=== PATIENT | female | born 1955 | race Caucasian/White ===

== ENCOUNTER 2021-04-07 14:11 | Outpatient (CLI) | payer MEDICARE ==
[2021-04-07 15:55] LABS: Hemoglobin 13.9 g/dL (12.0-15.5); Mean Corpuscular HGB CONC 32.1 g/dL (32.0-36.0); Mean Corpuscular Hemoglobin 28.4 pg (27.0-33.0); Mean Corpuscular Volume 88.5 fl (81.6-98.3); Platelet Count 283 10x3/uL (150-450); RBC Distribution Width 13.7 % (11.5-14.5); Red Blood Cell (RBC) Count 4.89 10x6/uL (3.90-5.03); White Blood Cell (WBC) Count 6.3 10x3/uL (3.5-10.5)
[2021-04-08 18:11] LABS: SARS-CoV-2 PCR by NAA Not Detected (NotDetected)
== END 2021-04-07 14:12 | disposition home or self-care (01) ==
LOC: CSHLAB 14:11
PROVIDERS: ATTEND Obstetrics & Gynecology
DX: Z01.812 Encounter for preprocedural laboratory examination (principal); Z20.822 Contact with and (suspected) exposure to COVID-19
CPT/HCPCS: 85027; 86850; 86900; 86901; U0003; U0005

== ENCOUNTER 2021-04-12 07:41 | Observation (INO) | payer MEDICARE ==
[2021-04-07 15:55] LABS: Hemoglobin 13.9 g/dL (12.0-15.5); Mean Corpuscular HGB CONC 32.1 g/dL (32.0-36.0); Mean Corpuscular Hemoglobin 28.4 pg (27.0-33.0); Mean Corpuscular Volume 88.5 fl (81.6-98.3); Platelet Count 283 10x3/uL (150-450); RBC Distribution Width 13.7 % (11.5-14.5); Red Blood Cell (RBC) Count 4.89 10x6/uL (3.90-5.03); White Blood Cell (WBC) Count 6.3 10x3/uL (3.5-10.5)
[2021-04-08 18:11] LABS: SARS-CoV-2 PCR by NAA Not Detected (NotDetected)
[2021-04-10 13:27] VITALS: BMI 27.1
[2021-04-12] MEDS ORDERED: CeleCOXIB 100 MG CAP ONE (07:47)
[2021-04-12] MEDS ORDERED: Gabapentin 300 MG CAP ONE (07:47)
[2021-04-12] MEDS ORDERED: Lidocaine 1% MPF 2 ML VIAL ONE (07:48)
[2021-04-12] MEDS ORDERED: Famotidine/PF 20 mg/2ml Vial ONE (07:48)
[2021-04-12] MEDS ORDERED: Midazolam HCl 2 mg/2 ml Vial ONE ×2 (08:46→09:39)
[2021-04-12] MEDS ORDERED: Ondansetron PF 4 MG/2 ML Vial ONE ×2 (09:39→16:35)
[2021-04-12] MEDS ORDERED: PROPOFOL 40 ML ONE (09:39)
[2021-04-12] MEDS ORDERED: Dexamethasone 20 MG/5 ML VIAL ONE (09:39)
[2021-04-12] MEDS ORDERED: Lidocaine 1% PF 5 ML VIAL ONE (09:39)
[2021-04-12] MEDS ORDERED: Fentanyl 250 MCG/5 ML VIAL ONE (09:39)
[2021-04-12] MEDS ORDERED: Rocuronium Bromide 10 MG/ML (10ML VIAL) ONE (09:39)
[2021-04-12] MEDS ORDERED: Ketorolac Tromethamine 30 MG/ML VIAL ONE (09:40)
[2021-04-12] MEDS ORDERED: Glycopyrrolate 0.2 MG/ML 5 ML SYRINGE ONE (09:40)
[2021-04-12] MEDS ORDERED: Bupivacaine PF 0.5% 30 ML VIAL ONE (09:53)
[2021-04-12] MEDS ORDERED: EPINEPHrine 1 MG/ML AMP ONE (09:53)
[2021-04-12] MEDS ORDERED: HYDROcodone/Acetaminophen 5/325 mg Tablet ONE (13:48)
[2021-04-12] MEDS ORDERED: HYDROcodone/Acetaminophen 5/325 mg Tablet PO PRN ×2 (19:00→19:01)
[2021-04-12] MEDS ORDERED: Ondansetron PF 4 MG/2 ML Vial IVP PRN (19:02)
[2021-04-12] MEDS ORDERED: Morphine 4 MG/ML VIAL SLOW IVP PRN (19:02)
[2021-04-12] MEDS: LACTINEX 1 TAB PO SCH (22:03)
[2021-04-13 05:16] LABS: Hemoglobin 11.1 g/dL (12.0-15.5); Mean Corpuscular HGB CONC 32.2 g/dL (32.0-36.0); Mean Corpuscular Hemoglobin 28.6 pg (27.0-33.0); Mean Corpuscular Volume 88.9 fl (81.6-98.3); Mean Platelet Volume 10.6 fl (7.4-10.4); Platelet Count 247 10x3/uL (150-450); RBC Distribution Width 13.6 % (11.5-14.5); Red Blood Cell (RBC) Count 3.88 10x6/uL (3.90-5.03); White Blood Cell (WBC) Count 13.1 10x3/uL (3.5-10.5)
[2021-04-13] MEDS ORDERED: Thyroid 60 MG TAB PO SCH (06:00)
[2021-04-13] MEDS ORDERED: Cholecalciferol 1,000 UNITS (25 MCG) TAB PO SCH (09:00)
[2021-04-13] MEDS ORDERED: Multivitamin W/ Minerals 1 TAB PO SCH (09:00)
[2021-04-13] MEDS ORDERED: Ascorbic Acid 500 mg Chewable Tablet PO SCH (09:00)
[2021-04-13] MEDS ORDERED: Zinc Gluconate 50 MG TAB PO SCH (09:00)
[2021-04-13] MEDS: LACTINEX 1 TAB PO SCH (09:37)
[2021-04-13 12:08] VITALS: BP 134/76; TEMP 98.2
[2021-04-13] MEDS ORDERED: Thyroid 30 MG TAB PO SCH (14:00)
[2021-04-18] MEDS ORDERED: Hydroxychloroquine Sulfate 200 MG TAB PO SCH (18:35)
== END 2021-04-13 12:48 | disposition home or self-care (01) ==
LOC: CSHSDC 07:41 → INTOOBSV 18:26 → CSHPED 18:26
PROVIDERS: ADMIT Obstetrics & Gynecology; ATTEND Obstetrics & Gynecology
PROC: 0UT94ZZ Resection of Uterus, Percutaneous Endoscopic Approach (ICD-10-PCS; principal; 2021-04-12)
PROC: 0UT14ZZ Resection of Left Ovary, Percutaneous Endoscopic Approach (ICD-10-PCS; 2021-04-12)
PROC: 0UT64ZZ Resection of Left Fallopian Tube, Percutaneous Endoscopic Approach (ICD-10-PCS; 2021-04-12)
PROC: 0USG4ZZ Reposition Vagina, Percutaneous Endoscopic Approach (ICD-10-PCS; 2021-04-12)
DX: D25.9 Leiomyoma of uterus, unspecified (principal); N88.8 Other specified noninflammatory disorders of cervix uteri; N83.312 Acquired atrophy of left ovary; N73.6 Female pelvic peritoneal adhesions (postinfective); N81.4 Uterovaginal prolapse, unspecified; E03.9 Hypothyroidism, unspecified; R33.8 Other retention of urine; Z79.899 Other long term (current) drug therapy; Z98.51 Tubal ligation status; Z20.822 Contact with and (suspected) exposure to COVID-19
CPT/HCPCS: 57425; 58571; 85027 ×2; 86850; 86900; 86901; C1776; U0003; U0005; 88307; G0378; J0171; J0690; J1100; J1885; J2250; J2405; J2704; J3010; S0020; S0028